=== PATIENT | male | born 1970 | race Caucasian/White ===

== ENCOUNTER 2021-04-23 01:12 | Day surgery (SDC) | payer BC, SELFPAY ==
[2021-04-12 14:23] VITALS: BMI 31.3
--- NOTE | 2021-04-23 08:08 | WPDANESEPPF ---
Anes - Initial Pre Proc Eval Procedure: Operation Date: 04/23/21 09:45 Proposed Procedures p Screening Colonoscopy - Sanchez Bishop MD Date/Time: 04/23/21 08:08 Surgeon: Sanchez Bishop MD Pre Op Diagnosis: neoplasm screening Patient Data Age: 50 Gender: M Height: 1.91 m Weight: 113.6 kg Allergies Allergy/AdvReac Type Severity Reaction Status Date / Time Sulfa (Sulfonamide Allergy Rash Verified 04/23/21 08:53 Antibiotics) Home Medications Medication Instructions Recorded Confirmed Type atorvastatin 20 mg PO DAILY 04/12/21 04/12/21 History emtricitabine-tenofovir (TDF) 200 - 300 tablet PO DAILY 04/12/21 04/12/21 History [Truvada] lorazepam 0.5 mg PO PRN 04/12/21 04/12/21 History magnesium oxide 400 mg PO DAILY 04/12/21 04/12/21 History metoprolol succinate 25 mg PO DAILY 04/12/21 04/12/21 History ustekinumab [Stelara] See Rx Instructions .ROUTE .COMPLEX 04/12/21 04/12/21 History warfarin 2 mg PO DAILY 04/12/21 04/12/21 History Patient hx anesthesia problems: none Family hx anesthesia problems: none PMFSH Past Medical History Medical History (Updated 04/23/21 @ 09:07 by Silvio Dhillon MD) Chronic GERD HTN (hypertension) Hypercholesterolemia Obesity Surgical History Surgical History (Updated 04/23/21 @ 08:10 by Silvio Dhillon MD) H/O aortic valve replacement Social History Social History Smoking status: Current every day smoker Tobacco type: cigarettes Alcohol use details: rarely Substance use: never Substance use type: does not use Living arrangements: with roommate(s) Spiritual care concerns: No Anes - Eval Final PreProcedure Day of Procedure 04/23/21 08:08 Patient weight: obese Heart: regular rate and rhythm Lungs: clear to auscultation and normal air movement Airway: Mallampati scale class II Neurological: alert and oriented Last oral intake: >/= 8 hours ASA classification: III Emergent: no Anesthetic plan: proceed Anesthesia type and monitoring: general GIVS Informed Consent: The patient's anesthetic plan and its attendant risks and benefits were discussed with the patient/family/POA. Questions were solicited and answers provided to the satisfaction of the patient/family/POA.
[2021-04-23 08:55] VITALS: BP 148/79; PULSE 53; RESP 18; TEMP 35.8; O2SAT 100; BMI 31.1
[2021-04-23] MEDS: LACTATED RINGERS 1,000 ML 150 ML IV CONT (09:21)
[2021-04-23 09:38] LABS: INR 1.4; Prothrombin Time 16.5 Seconds (11.1-14.7)
[2021-04-23] MEDS: GENTAMICIN 80MG/SOD CHL 50 ML 80 MG/50 ML BAG 100 MG IVPB (09:52)
--- NOTE | 2021-04-23 09:54 | PM.HPGS ---
History of Present Illness History of Present Illness Consent: Risks, benefits, and alternatives have been discussed and questions answered. Patient agrees to proceed with procedure. Chief complaint: neoplasm screening Narrative: Donny Mcmahon is a 50 year old male here for first colonoscopy, father had colon cancer. INR 1.4 today Review of Systems Constitutional: Constitutional: Denies headache(s) and Denies weakness Eyes: Eyes: Denies blurry vision ENT: Reports Normal hearing present, Denies headache(s) and Denies neck pain Cardiovascular: Cardiovascular: Denies chest pain and Denies dyspnea Respiratory: Respiratory: Denies dyspnea Gastrointestinal: Gastrointestinal: Reports no additional gastrointestinal complaints Genitourinary: Genitourinary: Denies dysuria Musculoskeletal: Musculoskeletal: Denies neck pain Integumentary/Breasts: Skin/Breast: Denies dry skin Neurologic: Reports Normal hearing present, Denies headache(s) and Denies weakness Psychiatric: Psychiatric: Denies anxiety Endocrine: Endocrine: Denies change in body appearance Hematologic/Lymphatic: Hematologic/Lymphatic: Denies easy bleeding Allergic/Immunologic: Allergic/Immunologic: Denies urticaria PMFSH Past Medical History Medical History (Updated 04/23/21 @ 09:55 by Sanchez Bishop MD) Chronic GERD Family history of colon cancer in father HTN (hypertension) Hypercholesterolemia Obesity Surgical History Surgical History (Updated 04/23/21 @ 08:10 by Silvio Dhillon MD) H/O aortic valve replacement Social History Social History Smoking status: Current every day smoker Tobacco type: cigarettes Alcohol use details: rarely Substance use: never Substance use type: does not use Living arrangements: with roommate(s) Spiritual care concerns: No Meds Home Medications and Allergies Home Medications Medication Instructions Recorded Confirmed Type atorvastatin 20 mg PO DAILY 04/12/21 04/12/21 History emtricitabine-tenofovir (TDF) 200 - 300 tablet PO DAILY 04/12/21 04/12/21 History [Truvada] lorazepam 0.5 mg PO PRN 04/12/21 04/12/21 History magnesium oxide 400 mg PO DAILY 04/12/21 04/12/21 History metoprolol succinate 25 mg PO DAILY 04/12/21 04/12/21 History ustekinumab [Stelara] See Rx Instructions .ROUTE .COMPLEX 04/12/21 04/12/21 History warfarin 2 mg PO DAILY 04/12/21 04/12/21 History Allergies Allergy/AdvReac Type Severity Reaction Status Date / Time Sulfa (Sulfonamide Allergy Rash Verified 04/23/21 08:53 Antibiotics) Vital Signs Vital Signs - 24 hr 04/23/21 08:55 Temperature 96.4 F L Pulse Rate 53 L Respiratory Rate 18 Blood Pressure 148/79 H Pulse Oximetry 100 Exam Const: General: comfortable and no acute distress HENMT: General nose exam: Normal nares present Eyes: General: appearance normal, both eyes and all related structures Neck: Neck: no JVD Resp: Auscultation: clear to auscultation bilaterally Cardio: Rate: regular rate Rhythm: regular rhythm GI: Inspection: non-distended GI Palp: Yes Soft to palpation Skin: General skin exam: normal color Neuro: General: gait normal Speech: normal speech Extrem: General: normal to inspection Psych: Mental Status: mental status grossly normal Assessment and Plan Assessment and plan (1) Family history of colon cancer in father: Code(s): Z80.0 - Family history of malignant neoplasm of digestive organs Status: Acute Assessment and Plan: colonoscopy (2) H/O aortic valve replacement: Code(s): Z95.2 - Presence of prosthetic heart valve Status: Acute
[2021-04-23 10:19] VITALS: BP 116/83; PULSE 53; RESP 18; O2SAT 96
[2021-04-23] MEDS: AMPICILLIN 2 GM/NS 100 ML 2 GM/100 ML BAG IVPB (10:19)
[2021-04-23 10:29] VITALS: BP 120/86; PULSE 48; RESP 18; O2SAT 97
[2021-04-23 10:39] VITALS: BP 120/86; PULSE 46; RESP 18; O2SAT 96
== END 2021-04-23 10:34 | disposition home or self-care (01) ==
PROVIDERS: Anesthesiology; PCP Physician Assistant; Visit Provider Internal Medicine Gastroenterology
PROC: 0DJD8ZZ Inspection of Lower Intestinal Tract, Via Natural or Artificial Opening Endoscopic (ICD-10-PCS; CPT 45378; principal; 2021-04-23 09:45)
DX: Z12.11 Encounter for screening for malignant neoplasm of colon (principal); Z80.0 Family history of malignant neoplasm of digestive organs; K64.8 Other hemorrhoids; D12.2 Benign neoplasm of ascending colon; K63.5 Polyp of colon; K21.9 Gastro-esophageal reflux disease without esophagitis; I10 Essential (primary) hypertension; E78.00 Pure hypercholesterolemia, unspecified; F17.210 Nicotine dependence, cigarettes, uncomplicated; Z79.01 Long term (current) use of anticoagulants; Z95.2 Presence of prosthetic heart valve; E66.9 Obesity, unspecified; Z68.31 Body mass index [BMI] 31.0-31.9, adult
CPT/HCPCS: 45385; 36415; 85610; 88305; J0290; J1580; J2704; J7120

== ENCOUNTER → 2021-10-15 07:45 | Outpatient (CLI) | payer BC, SELFPAY ==
--- NOTE | ~2021-10-15 | CT_ITS ---
EXAMINATION: CT diagnostic chest wo con DATE: 10/15/2021 08:16 INDICATION: Lung nodules. Smoker. TECHNIQUE: Computed tomography (CT) of the chest was performed without intravenous contrast. Automate d exposure control and iterative reconstruction technique were employed. Exam dose: 666.13 mGy-cm to robert exam DLP. COMPARISON: None FINDINGS: There is a 7 mm smooth circumscribed right lower lobe pulmonary nodule with attenuation up to 115 Hounsfield units, most likely a benign granuloma. Recommend comparison with prior CT examinati ons dating back 2 or more years to determine if this is stable. Otherwise, 6 month follow-up CT exami nation is recommended to document stability. No pulmonary infiltrate or consolidation or suspicious pulmonary mass density is noted otherwise. Status post sternotomy and aortic valve replacement. Normal heart size. No pericardial or pleural eff usion. No thoracic aortic aneurysm. No hilar or mediastinal mass lesion or lymphadenopathy. The adrenal glands are of normal morphology. Status post cholecystectomy. Degenerative spurring primarily in the lower thoracic spine; no suspicious osteolytic or osteoblastic lesions. IMPRESSION: 7 mm smooth circumscribed right lower lobe pulmonary nodule with attenuation up to 115 H ounsfield units, most likely a benign granuloma. Recommend comparison with prior CT examinations dati ng back 2 or more years to determine if this is stable. Otherwise, 6 month follow-up CT examination i s recommended to document stability. Status post aortic valve replacement Status post cholecystectomy Reviewed, dictated and finalized at [facility]. Reviewed, dictated and finalized at [facility]. GER NUCLEAR IMPRESSION: 7 mm smooth circumscribed right lower lobe pulmonary nodule with a ttenuation up to 115 Hounsfield units, most likely a benign granuloma. Recommen d comparison with prior CT examinations dating back 2 or more years to determin e if this is stable. Otherwise, 6 month follow-up CT examination is recommended to document stability. Status post aortic valve replacement Status post cholecystectomy
== END ==
PROVIDERS: PCP Physician Assistant; Visit Provider Physician Assistant
DX: R91.1 Solitary pulmonary nodule (principal); Z90.49 Acquired absence of other specified parts of digestive tract
CPT/HCPCS: 71250

== ENCOUNTER → 2023-07-10 08:09 | Outpatient (CLI) | payer BC, SELFPAY ==
--- NOTE | ~2023-07-10 | CT_ITS ---
CT Scan of the Chest without Contrast: Clinical Indication: Solitary pulmonary nodule Technique: Contiguous sections were acquired throughout the chest without intravenous contrast. Dose reduction technique was used on this scan by utilizing automated exposure control and iterative recon struction technique. The dose-length product (DLP) was 260.67 mGy-cm. COMPARISON: 10/15/2021 Findings: There is no evidence of any significant mediastinal, hilar or axillary lymphadenopathy. The mediastin al soft tissues appear normal. No pericardial effusion. Minimal right basilar pleural effusion present. No left pleural effusion. Stable 7 mm noncalcified right lower lobe pulmonary nodule (axial image 90). Images through the upper abdomen reveal no abnormalities. Impression: Stable 7 mm noncalcified right lower lobe pulmonary nodule. Stability suggests benignity. Follow-up t o document two-year stability recommended. Minimal right pleural effusion. Reviewed, dictated and finalized at [facility]. [employer] Impression: Stable 7 mm noncalcified right lower lobe pulmonary nodule. Stability suggests benignity. Follow-up to document two-year stability recommended. Minimal right pleural effusion.
== END ==
PROVIDERS: PCP Physician Assistant; Visit Provider Physician Assistant
DX: R91.1 Solitary pulmonary nodule (principal); J90 Pleural effusion, not elsewhere classified
CPT/HCPCS: 71250

== ENCOUNTER 2023-07-28 01:42 | Day surgery (SDC) | payer BC, SELFPAY ==
--- NOTE | 2023-06-30 12:17 | PC.NURSE ---
called pt to go over his instructions for colonoscopy, pt stated he is currently in the hospital with ruptured appendix. He is probably going to reschedule, is going to discuss with his physician and will cancel with office.
[2023-07-18 12:19] VITALS: BMI 29.5
--- NOTE | 2023-07-18 12:48 | PC.NURSE ---
Spoke with _patient___ regarding medication _warfarin and instructions from Dr. Kim_for Lovenox, pt. states he has followed this protocol before. Pt. verbalizes understanding that the last dose of _warfarin___ to be taken on _07/24/2023_ and the Endoscopist with instruct them when to restart after the procedure.
--- NOTE | 2023-07-23 09:41 | SUR.PREOP ---
Patient called regarding upcoming procedure. Reviewed preop instructions, appointment times, and procedure prep.
[2023-07-28 11:28] VITALS: BP 142/73; PULSE 67; RESP 18; TEMP 36.3; O2SAT 100
[2023-07-28] MEDS: LACTATED RINGERS 1,000 ML 150 ML IV CONT (11:45)
[2023-07-28] MEDS: GENTAMICIN 80MG/SOD CHL 50 ML 80 MG/50 ML BAG 100 MG IVPB (11:47)
[2023-07-28 11:58] LABS: Prothrombin Time 13.3 Seconds (11.1-14.7)
--- NOTE | 2023-07-28 12:01 | WPDANESEPPF ---
Anes - Initial Pre Proc Eval Procedure: Operation Date: 07/28/23 13:00 Proposed Procedures p Colonoscopy - Sanchez Bishop MD Date/Time: 07/28/23 12:01 Surgeon: Sanchez Bishop MD Pre Op Diagnosis: hx of colon polyps Patient Data Age: 53 Gender: M Height: 1.91 m Weight: 103.9 kg Last Vital Signs Temp 97.3 F L 07/28/23 11:28 Pulse 67 07/28/23 11:28 Resp 18 07/28/23 11:28 BP 142/73 H 07/28/23 11:28 Pulse Ox 100 07/28/23 11:28 O2 Del Method Room Air 07/28/23 11:28 Allergies Allergy/AdvReac Type Severity Reaction Status Date / Time Sulfa (Sulfonamide Allergy Intermediate Rash Verified 07/28/23 11:27 Antibiotics) Home Medications Medication Instructions Recorded Confirmed Type atorvastatin 20 mg tablet 20 mg PO DAILY 04/12/21 07/18/23 History emtricitabine 200 mg-tenofovir 200 - 300 tablet PO DAILY 04/12/21 07/18/23 History disoproxil fumarate 300 mg tablet (Truvada) lorazepam 0.5 mg tablet 0.5 mg PO PRN PRN Anxiety 04/12/21 07/18/23 History magnesium oxide 400 mg (241.3 mg 400 mg PO DAILY 04/12/21 07/18/23 History magnesium) tablet metoprolol succinate 25 mg 12.5 mg PO DAILY 04/12/21 07/18/23 History tablet,extended release 24 hr ustekinumab 90 mg/mL subcutaneous See Rx Instructions .Route .COMPLEX 04/12/21 07/18/23 History syringe (Stelara) warfarin 2 mg tablet 2 mg PO DAILY 04/12/21 07/18/23 History escitalopram oxalate 10 mg tablet 10 mg PO DAILY 07/18/23 07/18/23 History warfarin 5 mg tablet 5 mg PO DAILY 07/18/23 07/18/23 History Laboratory Tests 07/28/23 11:38 PT 13.3 Seconds (11.1-14.7) INR 1.0 Patient hx anesthesia problems: none Family hx anesthesia problems: none Results Review: All pre-operative results and documents have been reviewed as part of the pre-operative evaluation. [facility] Past Medical History Medical History (Updated 04/23/21 @ 09:55 by Sanchez Bishop MD) Chronic GERD Family history of colon cancer in father HTN (hypertension) Hypercholesterolemia Obesity Surgical History Surgical History (Updated 04/23/21 @ 08:10 by Silvio DhillonMD) H/O aortic valve replacement Social History Social History Smoking packs per day: 0.5 Smoking cigarettes per day: 10.0 Years smoked: 35 Smoking pack-years: 17.50 Smoking status: Current every day smoker Tobacco type: cigarettes Alcohol intake: current Alcohol use details: rarely Substance use: never Substance use type: does not use Living arrangements: with family Spiritual care concerns: No Anes - Eval Final PreProcedure Day of Procedure 07/28/23 12:01 Patient weight: normal Heart: regular rate and rhythm Lungs: clear to auscultation Airway: Mallampati scale class II Neurological: alert and oriented Last oral intake: >/= 8 hours ASA classification: III Emergent: no Anesthetic plan: proceed Anesthesia type and monitoring: general GIVS and standard monitoring Results Review: All pre-operative results and documents have been reviewed as part of the pre-operative evaluation. Informed Consent: The patient's anesthetic plan and its attendant risks and benefits were discussed with the patient/family/POA. Questions were solicited and answers provided to the satisfaction of the patient/family/POA.
--- NOTE | 2023-07-28 12:13 | PM.HPGS ---
History of Present Illness History of Present Illness Consent: Risks, benefits, and alternatives have been discussed and questions answered. Patient agrees to proceed with procedure. Chief complaint: hx of colon polyps Narrative: Donny Mcmahon is a 53 year old male with colon polyp in 2020 and father with colon cancer Review of Systems Constitutional: Constitutional: Denies headache(s) and Denies weakness Eyes: Eyes: Denies blurry vision ENT: Reports Normal hearing present, Denies headache(s) and Denies neck pain Cardiovascular: Cardiovascular: Denies chest pain and Denies dyspnea Respiratory: Respiratory: Denies dyspnea Gastrointestinal: Gastrointestinal: Reports no additional gastrointestinal complaints Genitourinary: Genitourinary: Denies dysuria Musculoskeletal: Musculoskeletal: Denies neck pain Integumentary/Breasts: Skin/Breast: Denies dry skin Neurologic: Reports Normal hearing present, Denies headache(s) and Denies weakness Psychiatric: Psychiatric: Denies anxiety Endocrine: Endocrine: Denies change in body appearance Hematologic/Lymphatic: Hematologic/Lymphatic: Denies easy bleeding Allergic/Immunologic: Allergic/Immunologic: Denies urticaria PMFSH Past Medical History Medical History (Updated 07/28/23 @ 12:14 by Sanchez Bishop MD) Adenomatous colon polyp Chronic GERD Family history of colon cancer in father HTN (hypertension) Hypercholesterolemia Obesity Surgical History Surgical History (Updated 04/23/21 @ 08:10 by Silvio DhillonMD) H/O aortic valve replacement Social History Social History Smoking packs per day: 0.5 Smoking cigarettes per day: 10.0 Years smoked: 35 Smoking pack-years: 17.50 Smoking status: Current every day smoker Tobacco type: cigarettes Alcohol intake: current Alcohol use details: rarely Substance use: never Substance use type: does not use Living arrangements: with family Spiritual care concerns: No Meds Home Medications and Allergies Home Medications Medication Instructions Recorded Confirmed Type atorvastatin 20 mg tablet 20 mg PO DAILY 04/12/21 07/18/23 History emtricitabine 200 mg-tenofovir 200 - 300 tablet PO DAILY 04/12/21 07/18/23 History disoproxil fumarate 300 mg tablet (Truvada) lorazepam 0.5 mg tablet 0.5 mg PO PRN PRN Anxiety 04/12/21 07/18/23 History magnesium oxide 400 mg (241.3 mg 400 mg PO DAILY 04/12/21 07/18/23 History magnesium) tablet metoprolol succinate 25 mg 12.5 mg PO DAILY 04/12/21 07/18/23 History tablet,extended release 24 hr ustekinumab 90 mg/mL subcutaneous See Rx Instructions .Route .COMPLEX 04/12/21 07/18/23 History syringe (Stelara) warfarin 2 mg tablet 2 mg PO DAILY 04/12/21 07/18/23 History escitalopram oxalate 10 mg tablet 10 mg PO DAILY 07/18/23 07/18/23 History warfarin 5 mg tablet 5 mg PO DAILY 07/18/23 07/18/23 History Allergies Allergy/AdvReac Type Severity Reaction Status Date / Time Sulfa (Sulfonamide Allergy Intermediate Rash Verified 07/28/23 11:27 Antibiotics) Vital Signs Vital Signs - 24 hr 07/28/23 11:28 Temperature 97.3 F L Pulse Rate 67 Respiratory Rate 18 Blood Pressure 142/73 H Pulse Oximetry 100 Oxygen Delivery Room Air Exam Const: General: comfortable and no acute distress HENMT: Face/Nose/Sinus: Normal nares present Eyes: General: appearance normal, both eyes and all related structures Neck: Neck: no JVD Resp: Auscultation: clear to auscultation bilaterally Cardio: Rate: regular rate Rhythm: regular rhythm GI: Inspection: non-distended GI Palp: Yes Soft to palpation Skin: General skin exam: normal color Neuro: General: gait normal Speech: normal speech Extrem: General: normal to inspection Psych: Mental Status: mental status grossly normal Assessment and Plan Assessment and plan (1) Family history of colon cancer in father: Code(s): Z80.0 - Family history of m
[2023-07-28] MEDS: AMPICILLIN 2 GM/NS 100 ML 2 GM/100 ML BAG IVPB (12:16)
[2023-07-28 12:37] VITALS: BP 101/58; PULSE 56; RESP 18; O2SAT 100
[2023-07-28 12:47] VITALS: BP 109/62; PULSE 57; RESP 22; O2SAT 99
== END 2023-07-28 13:14 | disposition home or self-care (01) ==
PROVIDERS: PCP Physician Assistant; Visit Provider Internal Medicine Gastroenterology
PROC: 0DJD8ZZ Inspection of Lower Intestinal Tract, Via Natural or Artificial Opening Endoscopic (ICD-10-PCS; CPT 45378; principal; 2023-07-28 13:00)
DX: Z12.11 Encounter for screening for malignant neoplasm of colon (principal); K64.8 Other hemorrhoids; I10 Essential (primary) hypertension; E78.00 Pure hypercholesterolemia, unspecified; Z95.2 Presence of prosthetic heart valve; F17.210 Nicotine dependence, cigarettes, uncomplicated
CPT/HCPCS: 45378; 36415; 85610; J0290; J1580; J2001; J2704; J7120

== ENCOUNTER 2024-06-30 07:21 | Outpatient (CLI) | payer BC, SELFPAY | END 2024-06-30 07:22 | disposition home or self-care (01) | LOC: MICIMG 07:24 | PROVIDERS: PCP Physician Assistant; Visit Provider Physician Assistant | DX: M25.562 Pain in left knee (principal) | CPT/HCPCS: 73562 ==